=== PATIENT | male | born 1935 | race Caucasian/White ===

== ENCOUNTER 2022-06-06 17:06 | Inpatient (IN) | payer MEDICARE ==
[2022-06-06] MEDS ORDERED: Non-Formulary Item 1 EACH (Acetaminophen [Acetaminophen Oral Solution] 160 MG/5 ML Bottle PO PRN (18:58)
[2022-06-06] MEDS ORDERED: Ondansetron PF 4 MG/2 ML Vial IVP PRN (19:01)
[2022-06-06] MEDS ORDERED: Acetaminophen 325 MG/10.15 ML UDCUP PO PRN (19:26)
[2022-06-06] MEDS ORDERED: Dextrose 5% in Water 1,000 ML IV PRN (20:59)
[2022-06-06] MEDS ORDERED: Dextrose 50% Abboject 50 ML SYRINGE SLOW IVP PRN (20:59)
[2022-06-06] MEDS ORDERED: HumaLOG 300 UNITS/3 ML VIAL SC PRN ×2 (20:59)
[2022-06-06] MEDS: Metoprolol Tartrate 50 MG TAB PO SCH (22:15)
[2022-06-06] MEDS: Melatonin 3 MG TAB PO SCH (22:15)
[2022-06-06] MEDS: Rosuvastatin 10 MG TAB PO SCH (22:16)
[2022-06-06] MEDS: Dextrose 5%-Lactated Ringers 1,000 ML IV SCH (23:15)
[2022-06-06] MEDS: Chlorhexidine Gluconate 15 ML UDCUP SSP SCH (23:41)
[2022-06-07] MEDS: Haloperidol 5 MG TAB PO SCH ×4 (06:40→18:27)
[2022-06-07 07:11] LABS: #Basophils 0.1 thou/uL (0.0-0.2); #Lymphocytes 1.6 thou/uL (1.20-3.40); #Neutrophils 12.8 thou/uL (1.40-6.50); %Basophils 0.5 % (0.0-1.0); %Eosinophils 0.1 % (0.0-10.0); %Lymphocytes 10.2 % (21.0-51.0); %Monocytes 6.7 % (0.0-10.0); %Neutrophils 82.6 % (42.0-75.0); Hemoglobin 12.6 g/dL (14.0-18.0); Mean Corpuscular HGB CONC 30.8 g/dL (32.0-36.0); Mean Corpuscular Hemoglobin 30.1 pg (27.0-31.0); Mean Corpuscular Volume 97.6 fl (78.0-98.0); Mean Platelet Volume 9.1 fL (7.4-10.4); Platelet Count 311 thou/uL (130-400); RBC Distribution Width 13.5 % (11.5-14.5); White Blood Cell (WBC) Count 15.5 thou/uL (4.8-10.8)
[2022-06-07 07:28] LABS: ALT (SGPT) 19 U/L (8-55); AST (SGOT) 25 U/L (5-34); Albumin 3.7 g/dL (3.4-4.8); Alkaline Phosphatase 115 U/L (40-110); Anion Gap 19 mmol/L (10-20); BUN (Urea Nitrogen) 43 mg/dL (8.4-25.7); Bilirubin, Total 0.5 mg/dL (0.2-1.2); Calc. Creatinine Clearance 14 mL/min (70-130); Calcium 10.3 mg/dL (7.8-10.44); Carbon Dioxide 19 mmol/L (23-31); Chloride 102 mmol/L (98-107); Estimated GFR 18; Globulin 3.2 g/dL (2.4-3.5); Glucose 191 mg/dL (83-110); Protein, Total 6.9 g/dL (5.8-8.1); Sodium 135 mmol/L (136-145)
[2022-06-07] MEDS ORDERED: metFORMIN 500 MG TAB PO SCH (08:00)
[2022-06-07 08:20] LABS: Actual Bicarbonate (HCO3a) 24.9 mEq/L (22-28); Base Excess (BEa) -4.9 mEq/L (-2.0 to +3.0); Calcium, Ionized (arterial) 1.34 mmol/L (1.12-1.30); Carboxyhemoglobin (COHb) 0.1 gm% (0.0-3.0); Potassium - ABG Lab 4.97 mmol/L (3.70-5.30)
[2022-06-07 08:22] LABS: ALV-art Gradient 571.675 mmHg (0-20); CO2 Tension 69.7 mmHg (35.0-45.0); O2 Tension (PaO2), arterial 54.2 mmHg (> 60.0); Puncture Site RRA; pH, Arterial 7.17 (7.35-7.45)
[2022-06-07] MEDS ORDERED: NOREPINEPHRINE 8 MG/250 ML-D5W 250 ML ONE (08:48)
[2022-06-07] MEDS ORDERED: Propofol 1,000 MG/100 ML VIAL IV ONE (08:57)
[2022-06-07] MEDS ORDERED: Ventilator Sedation Protocol 1 EACH FS ONE (08:59)
[2022-06-07] MEDS ORDERED: Allopurinol 300 MG TAB PO SCH (09:00)
[2022-06-07] MEDS ORDERED: FLU VACC QS2022-23(65YR UP)/PF 240 MCG/0.7 ML SYRINGE IM ONE (09:00)
[2022-06-07] MEDS ORDERED: Midazolam HCl 2 mg/2 ml Vial SLOW IVP PRN (09:03)
[2022-06-07] MEDS ORDERED: Fentanyl BOLUS 250 ML IVPB PRN (09:15)
[2022-06-07] MEDS ORDERED: Fentanyl CADD 100 ML IV SCH (09:15)
[2022-06-07] MEDS ORDERED: DISCONTINUE PREVIOUS NARCOTIC PAIN MEDICATIONS AND BENZODIAZEPINES FS SCH (09:15)
[2022-06-07] MEDS ORDERED: Propofol BOLUS 1,000 MG/100 ML VIAL IV PRN (09:15)
[2022-06-07 09:33] LABS: Actual Bicarbonate (HCO3a) 20.3 mEq/L (22-28); Base Excess (BEa) -6.1 mEq/L (-2.0 to +3.0); CO2 Tension 43.7 mmHg (35.0-45.0); Calcium, Ionized (arterial) 1.24 mmol/L (1.12-1.30); Carboxyhemoglobin (COHb) 0.3 gm% (0.0-3.0); Hemoglobin (Hb) 11.9 g/dL (14.0-18.0); O2 Tension (PaO2), arterial 223.8 mmHg (> 60.0); Potassium - ABG Lab 4.54 mmol/L (3.70-5.30); pH, Arterial 7.29 (7.35-7.45)
[2022-06-07 09:37] LABS: Puncture Site RRA
[2022-06-07 09:40] LABS: #Monocytes 0.9 thou/uL (0.11-0.59); #Neutrophils 10.6 thou/uL (1.40-6.50); %Basophils 0.2 % (0.0-1.0); %Eosinophils 0.2 % (0.0-10.0); %Lymphocytes 7.8 % (21.0-51.0); %Monocytes 6.8 % (0.0-10.0); %Neutrophils 85.1 % (42.0-75.0); Mean Corpuscular HGB CONC 31.7 g/dL (32.0-36.0); Mean Corpuscular Hemoglobin 30.6 pg (27.0-31.0); Mean Corpuscular Volume 96.4 fl (78.0-98.0); Mean Platelet Volume 9.4 fL (7.4-10.4); Platelet Count 275 thou/uL (130-400); RBC Distribution Width 13.4 % (11.5-14.5); Red Blood Cell (RBC) Count 3.61 mill/uL (4.70-6.10); White Blood Cell (WBC) Count 12.5 thou/uL (4.8-10.8)
[2022-06-07] MEDS: Propofol 1,000 MG/100 ML VIAL IV PRN ×2 (10:01→15:04)
[2022-06-07 10:02] LABS: ALT (SGPT) 14 U/L (8-55); AST (SGOT) 22 U/L (5-34); Albumin 3.3 g/dL (3.4-4.8); Alkaline Phosphatase 101 U/L (40-110); Anion Gap 17 mmol/L (10-20); BUN (Urea Nitrogen) 41 mg/dL (8.4-25.7); Bilirubin, Total 0.4 mg/dL (0.2-1.2); Calc. Creatinine Clearance 13 mL/min (70-130); Calcium 9.3 mg/dL (7.8-10.44); Carbon Dioxide 21 mmol/L (23-31); Chloride 105 mmol/L (98-107); Estimated GFR 18; Globulin 2.9 g/dL (2.4-3.5); Glucose 296 mg/dL (83-110); Magnesium 1.9 mg/dL (1.6-2.6); Phosphorus 5.8 mg/dL (2.3-4.7); Potassium 4.7 mmol/L (3.5-5.1); Protein, Total 6.2 g/dL (5.8-8.1); Sodium 138 mmol/L (136-145)
[2022-06-07] MEDS: Dextrose 5%-Lactated Ringers 1,000 ML IV SCH ×2 (10:02→11:50)
[2022-06-07] MEDS: Amlodipine 10 MG TAB PO SCH (10:02)
[2022-06-07] MEDS: Metoprolol Tartrate 50 MG TAB PO SCH ×2 (10:03→22:39)
[2022-06-07] MEDS: Chlorhexidine Gluconate 15 ML UDCUP SSP SCH ×2 (10:03→21:30)
[2022-06-07] MEDS: Valsartan 80 MG TAB PO SCH (10:06)
[2022-06-07] MEDS: Pantoprazole 40 MG VIAL IVP SCH (11:50)
[2022-06-07] MEDS: Sodium Chloride 0.9% 1,000 ML IV SCH (12:14)
[2022-06-07 12:52] LABS: Troponin I 0.265 ng/mL (< 0.028)
[2022-06-07] MEDS ORDERED: SODIUM CHLORIDE 0.9% IVPB SCH (14:30)
[2022-06-07] MEDS ORDERED: TAZOBACTAM IVPB SCH (14:30)
[2022-06-07] MEDS ORDERED: PIPERACILLIN IVPB SCH (14:30)
[2022-06-07] MEDS ORDERED: Piperacillin/Tazobactam 3.375 GM in Sodium Chloride 0.9% 100 ML IVPB SCH (15:00)
[2022-06-07] MEDS ORDERED: Fentanyl CADD 100 ML ONE (17:22)
[2022-06-07] MEDS: Piperacillin/Tazobactam 3.375 GM in Sodium Chloride 0.9% 100 ML IVPB SCH (17:27)
[2022-06-07] MEDS: NOREPINEPHRINE 8 MG/250 ML-D5W 250 ML IVPB SCH (20:50)
[2022-06-07] MEDS: Melatonin 3 MG TAB PO SCH (21:30)
[2022-06-07] MEDS: Rosuvastatin 10 MG TAB PO SCH (21:30)
[2022-06-08] MEDS: Haloperidol 5 MG TAB PO SCH ×2 (00:49→06:04)
[2022-06-08 01:10] VITALS: BMI 18.1
[2022-06-08] MEDS: Sodium Chloride 0.9% 1,000 ML IV SCH (02:30)
[2022-06-08 04:57] LABS: #Monocytes 0.7 thou/uL (0.11-0.59); #Neutrophils 8.8 thou/uL (1.40-6.50); %Basophils 0.4 % (0.0-1.0); %Eosinophils 0.2 % (0.0-10.0); %Lymphocytes 9.7 % (21.0-51.0); %Monocytes 6.8 % (0.0-10.0); %Neutrophils 82.9 % (42.0-75.0); Hemoglobin 10.5 g/dL (14.0-18.0); Mean Corpuscular HGB CONC 32.2 g/dL (32.0-36.0); Mean Corpuscular Hemoglobin 31.1 pg (27.0-31.0); Mean Corpuscular Volume 96.7 fl (78.0-98.0); Mean Platelet Volume 9.2 fL (7.4-10.4); Platelet Count 213 thou/uL (130-400); RBC Distribution Width 13.6 % (11.5-14.5); Red Blood Cell (RBC) Count 3.38 mill/uL (4.70-6.10); White Blood Cell (WBC) Count 10.6 thou/uL (4.8-10.8)
[2022-06-08] MEDS: Piperacillin/Tazobactam 3.375 GM in Sodium Chloride 0.9% 100 ML IVPB SCH ×2 (06:08→17:56)
[2022-06-08 06:11] LABS: ALT (SGPT) 13 U/L (8-55); AST (SGOT) 21 U/L (5-34); Alkaline Phosphatase 98 U/L (40-110); Anion Gap 17 mmol/L (10-20); BUN (Urea Nitrogen) 49 mg/dL (8.4-25.7); Bilirubin, Total 0.5 mg/dL (0.2-1.2); Calc. Creatinine Clearance 12 mL/min (70-130); Calcium 9.1 mg/dL (7.8-10.44); Carbon Dioxide 20 mmol/L (23-31); Chloride 104 mmol/L (98-107); Estimated GFR 16; Globulin 2.8 g/dL (2.4-3.5); Glucose 189 mg/dL (83-110); Potassium 4.6 mmol/L (3.5-5.1); Protein, Total 5.8 g/dL (5.8-8.1); Sodium 136 mmol/L (136-145)
[2022-06-08 07:40] LABS: Actual Bicarbonate (HCO3a) 19.6 mEq/L (22-28); Base Excess (BEa) -5.5 mEq/L (-2.0 to +3.0); CO2 Tension 36.7 mmHg (35.0-45.0); Calcium, Ionized (arterial) 1.23 mmol/L (1.12-1.30); Carboxyhemoglobin (COHb) 0.3 gm% (0.0-3.0); Hemoglobin (Hb) 11.9 g/dL (14.0-18.0); O2 Tension (PaO2), arterial 129.8 mmHg (> 60.0); Potassium - ABG Lab 4.68 mmol/L (3.70-5.30); pH, Arterial 7.35 (7.35-7.45)
[2022-06-08 07:55] LABS: ALV-art Gradient 109.525 mmHg (0-20); Puncture Site RRA
[2022-06-08] MEDS: Pantoprazole 40 MG VIAL IVP SCH (08:20)
[2022-06-08] MEDS: Amlodipine 10 MG TAB PO SCH (08:21)
[2022-06-08] MEDS: Chlorhexidine Gluconate 15 ML UDCUP SSP SCH ×2 (08:21→21:58)
[2022-06-08] MEDS: Metoprolol Tartrate 50 MG TAB PO SCH ×2 (08:21→21:58)
[2022-06-08] MEDS: Valsartan 80 MG TAB PO SCH (08:22)
[2022-06-08] MEDS: Allopurinol 100 MG TAB PO SCH (08:57)
[2022-06-08] MEDS: NOREPINEPHRINE 8 MG/250 ML-D5W 250 ML IVPB SCH (10:05)
[2022-06-08] MEDS ORDERED: Dexmedetomidine In 0.9 % NaCl 100 ML IVPB SCH (11:00)
[2022-06-08] MEDS ORDERED: Lactated Ringer's 1,000 ML IV SCH (11:00)
[2022-06-08] MEDS ORDERED: Scopolamine 1.5 mg/72 hour Patch TD SCH (13:00)
[2022-06-08] MEDS: Rosuvastatin 10 MG TAB PO SCH (21:58)
[2022-06-08] MEDS: Melatonin 3 MG TAB PO SCH (21:58)
[2022-06-08] MEDS: Heparin 5,000 UNITS/ML VIAL SC SCH (21:59)
[2022-06-09 05:07] LABS: #Lymphocytes 0.9 thou/uL (1.20-3.40); #Monocytes 0.7 thou/uL (0.11-0.59); #Neutrophils 10.9 thou/uL (1.40-6.50); %Basophils 0.3 % (0.0-1.0); %Eosinophils 0.2 % (0.0-10.0); %Monocytes 5.5 % (0.0-10.0); %Neutrophils 87.1 % (42.0-75.0); Hemoglobin 9.8 g/dL (14.0-18.0); Mean Corpuscular HGB CONC 32.4 g/dL (32.0-36.0); Mean Corpuscular Hemoglobin 31.2 pg (27.0-31.0); Mean Corpuscular Volume 96.2 fl (78.0-98.0); Mean Platelet Volume 9.5 fL (7.4-10.4); Platelet Count 183 thou/uL (130-400); RBC Distribution Width 13.6 % (11.5-14.5); Red Blood Cell (RBC) Count 3.13 mill/uL (4.70-6.10); White Blood Cell (WBC) Count 12.5 thou/uL (4.8-10.8)
[2022-06-09] MEDS: Piperacillin/Tazobactam 3.375 GM in Sodium Chloride 0.9% 100 ML IVPB SCH ×2 (05:13→17:41)
[2022-06-09 05:15] LABS: ALT (SGPT) 11 U/L (8-55); AST (SGOT) 22 U/L (5-34); Albumin 2.7 g/dL (3.4-4.8); Alkaline Phosphatase 101 U/L (40-110); Anion Gap 17 mmol/L (10-20); BUN (Urea Nitrogen) 57 mg/dL (8.4-25.7); Bilirubin, Total 0.6 mg/dL (0.2-1.2); Calc. Creatinine Clearance 11 mL/min (70-130); Carbon Dioxide 18 mmol/L (23-31); Chloride 105 mmol/L (98-107); Estimated GFR 14; Globulin 2.8 g/dL (2.4-3.5); Glucose 129 mg/dL (83-110); Potassium 4.3 mmol/L (3.5-5.1); Protein, Total 5.5 g/dL (5.8-8.1); Sodium 136 mmol/L (136-145)
[2022-06-09 08:01] LABS: Actual Bicarbonate (HCO3a) 18.9 mEq/L (22-28); Base Excess (BEa) -4.9 mEq/L (-2.0 to +3.0); CO2 Tension 30.7 mmHg (35.0-45.0); Carboxyhemoglobin (COHb) 0.3 gm% (0.0-3.0); Hemoglobin (Hb) 10.2 g/dL (14.0-18.0); O2 Tension (PaO2), arterial 171.2 mmHg (> 60.0); Potassium - ABG Lab 4.33 mmol/L (3.70-5.30); pH, Arterial 7.41 (7.35-7.45)
[2022-06-09 08:31] LABS: ALV-art Gradient 75.625 mmHg (0-20); Puncture Site RRA
[2022-06-09] MEDS: Amlodipine 10 MG TAB PO SCH (08:39)
[2022-06-09] MEDS: Valsartan 80 MG TAB PO SCH (08:39)
[2022-06-09] MEDS: Metoprolol Tartrate 50 MG TAB PO SCH (08:39)
[2022-06-09] MEDS: Chlorhexidine Gluconate 15 ML UDCUP SSP SCH ×2 (08:41→20:00)
[2022-06-09] MEDS: Pantoprazole 40 MG VIAL IVP SCH (08:41)
[2022-06-09] MEDS: Heparin 5,000 UNITS/ML VIAL SC SCH ×2 (10:29→20:00)
[2022-06-09] MEDS: Albumin 25% 25 GM/100 ML BOT IVPB SCH ×3 (13:36→23:10)
[2022-06-09 14:30] LABS: Bacteria/HPF 3+ HPF (None Seen); Bilirubin Negative (Negative); Blood, Urine 2+ (Negative); Glucose, Urine (Dipstick) Normal (Negative); Ketone, Urine Trace mg/dL (Negative); Leukocyte 500 Leu/uL (Negative); Nitrite Negative (Negative); Protein, Urine (Dipstick) 50 mg/dL (Neg-Trace); RBC/HPF 21-50 HPF (0-3); Specific Gravity, Urine 1.016 (1.002-1.036); Urobilinogen Normal mg/dL (Less than 2); WBC/HPF Greater than 50 HPF (0-3); pH, Urine 5.5 (5.0-9.0)
[2022-06-09 14:31] LABS: Clarity Turbid (Clear)
[2022-06-09] MEDS: NOREPINEPHRINE 8 MG/250 ML-D5W 250 ML IVPB SCH (19:55)
[2022-06-09] MEDS: Melatonin 3 MG TAB PO SCH (20:01)
[2022-06-09] MEDS ORDERED: Rosuvastatin 10 MG TAB PO SCH (21:00)
[2022-06-09] MEDS: Morphine 4 MG/ML VIAL SLOW IVP PRN (21:49)
[2022-06-09] MEDS: Propofol 1,000 MG/100 ML VIAL IV PRN (22:25)
[2022-06-10 01:36] VITALS: BP 114/52
[2022-06-10] MEDS: Morphine 4 MG/ML VIAL SLOW IVP PRN (03:31)
[2022-06-10 05:08] LABS: #Lymphocytes 0.7 thou/uL (1.20-3.40); #Monocytes 0.6 thou/uL (0.11-0.59); #Neutrophils 6.8 thou/uL (1.40-6.50); %Basophils 0.3 % (0.0-1.0); %Eosinophils 0.3 % (0.0-10.0); %Lymphocytes 8.5 % (21.0-51.0); %Monocytes 6.9 % (0.0-10.0); Hemoglobin 8.2 g/dL (14.0-18.0); Mean Corpuscular HGB CONC 32.2 g/dL (32.0-36.0); Mean Corpuscular Hemoglobin 30.8 pg (27.0-31.0); Mean Corpuscular Volume 95.7 fl (78.0-98.0); Mean Platelet Volume 9.9 fL (7.4-10.4); Platelet Count 119 thou/uL (130-400); RBC Distribution Width 13.4 % (11.5-14.5); Red Blood Cell (RBC) Count 2.67 mill/uL (4.70-6.10); White Blood Cell (WBC) Count 8.1 thou/uL (4.8-10.8)
[2022-06-10 05:21] LABS: ALT (SGPT) 29 U/L (8-55); AST (SGOT) 67 U/L (5-34); Albumin 3.4 g/dL (3.4-4.8); Alkaline Phosphatase 97 U/L (40-110); Anion Gap 16 mmol/L (10-20); BUN (Urea Nitrogen) 63 mg/dL (8.4-25.7); Bilirubin, Total 0.5 mg/dL (0.2-1.2); Calc. Creatinine Clearance 11 mL/min (70-130); Calcium 9.2 mg/dL (7.8-10.44); Carbon Dioxide 20 mmol/L (23-31); Chloride 107 mmol/L (98-107); Estimated GFR 13; Globulin 2.3 g/dL (2.4-3.5); Glucose 123 mg/dL (83-110); Potassium 3.9 mmol/L (3.5-5.1); Protein, Total 5.7 g/dL (5.8-8.1); Sodium 139 mmol/L (136-145)
[2022-06-10] MEDS: Piperacillin/Tazobactam 3.375 GM in Sodium Chloride 0.9% 100 ML IVPB SCH (05:39)
[2022-06-10] MEDS: Albumin 25% 25 GM/100 ML BOT IVPB SCH (05:39)
[2022-06-10 07:21] LABS: Actual Bicarbonate (HCO3a) 21.3 mEq/L (22-28); Base Excess (BEa) -3.2 mEq/L (-2.0 to +3.0); CO2 Tension 36.4 mmHg (35.0-45.0); Calcium, Ionized (arterial) 1.21 mmol/L (1.12-1.30); Carboxyhemoglobin (COHb) 0.3 gm% (0.0-3.0); Hemoglobin (Hb) 10.1 g/dL (14.0-18.0); O2 Tension (PaO2), arterial 238.9 mmHg (> 60.0); Potassium - ABG Lab 3.97 mmol/L (3.70-5.30); pH, Arterial 7.39 (7.35-7.45)
[2022-06-10 07:24] LABS: Puncture Site RBA
[2022-06-10] MEDS: Pantoprazole 40 MG VIAL IVP SCH (10:36)
[2022-06-10] MEDS: Chlorhexidine Gluconate 15 ML UDCUP SSP SCH (10:36)
[2022-06-10] MEDS: Heparin 5,000 UNITS/ML VIAL SC SCH (10:37)
[2022-06-10] MEDS ORDERED: Glycopyrrolate 0.2 MG/ML 5 ML SYRINGE SLOW IVP SCH (11:23)
[2022-06-10] MEDS ORDERED: LORazepam 2 MG/ML SYRINGE IVP PRN (11:24)
[2022-06-10] MEDS ORDERED: Morphine 4 MG/ML VIAL SLOW IVP PRN (11:25)
[2022-06-10] MEDS ORDERED: Haloperidol Lactate 5 MG/ML VIAL SLOW IVP PRN (11:27)
[2022-06-10] MEDS ORDERED: Glycopyrrolate 0.2 MG/ML 5 ML SYRINGE SLOW IVP PRN (11:47)
[2022-06-10] MEDS ORDERED: Scopolamine 1.5 mg/72 hour Patch TD SCH (12:00)
[2022-06-10 12:32] VITALS: TEMP 97.9
[2022-06-10] MEDS ORDERED: Lorazepam 2 MG/ML VIAL SLOW IVP PRN ×2 (14:00→14:26)
[2022-06-10] MEDS: Allopurinol 100 MG TAB PO SCH (14:16)
[2022-06-14] MEDS ORDERED: Allopurinol 100 MG TAB PO SCH (09:00)
== END 2022-06-10 15:00 | disposition hospice, inpatient (51) | DRG 208 ==
LOC: INTOOBSV 17:13 → MSONC 17:13 → NEURO 21:46 → CCU 06-07 08:39 → OBSVTOIN 06-07 09:26
PROVIDERS: ADMIT Family Medicine; ATTEND Family Medicine
PROC: 5A1945Z Respiratory Ventilation, 24-96 Consecutive Hours (ICD-10-PCS; principal; 2022-06-07)
PROC: 3E033XZ Introduction of Vasopressor into Peripheral Vein, Percutaneous Approach (ICD-10-PCS; 2022-06-07)
PROC: 0BH18EZ Insertion of Endotracheal Airway into Trachea, Via Natural or Artificial Opening Endoscopic (ICD-10-PCS; 2022-06-07)
DX: J69.0 Pneumonitis due to inhalation of food and vomit (principal); Z66 Do not resuscitate; Z51.5 Encounter for palliative care; Z20.822 Contact with and (suspected) exposure to COVID-19; J96.01 Acute respiratory failure with hypoxia; E43 Unspecified severe protein-calorie malnutrition; N17.0 Acute kidney failure with tubular necrosis; J96.02 Acute respiratory failure with hypercapnia; R64 Cachexia; Z68.1 Body mass index [BMI] 19.9 or less, adult; I50.32 Chronic diastolic (congestive) heart failure; F05 Delirium due to known physiological condition; E87.29 Other acidosis; E86.0 Dehydration; E78.5 Hyperlipidemia, unspecified; E11.22 Type 2 diabetes mellitus with diabetic chronic kidney disease; R29.6 Repeated falls; D63.1 Anemia in chronic kidney disease; R77.8 Other specified abnormalities of plasma proteins; N18.31 Chronic kidney disease, stage 3a; I11.0 Hypertensive heart disease with heart failure; I95.89 Other hypotension; S02.609D Fracture of mandible, unspecified, subsequent encounter for fracture with routine healing; Z78.1 Physical restraint status; Z28.82 Immunization not carried out because of caregiver refusal; Z86.73 Personal history of transient ischemic attack (TIA), and cerebral infarction without residual deficits; Z79.899 Other long term (current) drug therapy; Z79.84 Long term (current) use of oral hypoglycemic drugs; Z91.81 History of falling; Z98.890 Other specified postprocedural states; Z90.49 Acquired absence of other specified parts of digestive tract; Z87.891 Personal history of nicotine dependence; W18.30XD Fall on same level, unspecified, subsequent encounter
CPT/HCPCS: 36415; 36416; 36600; 70450; 71045; 76770; 80053; 81001; 82805; 83735; 84100; 84484; 85025; 89220; 93005; 93010; 94002; 94003; C9113; G0378; J1630; J1644; J1815; J2060; J2250; J2270; J2543; J2704; J3010; J3490; J7050; J7120; P9047; U0003; U0005